=== PATIENT | male | born 1980 | race Two or more races ===

== ENCOUNTER 2024-10-21 18:22 | Emergency (ER) | payer MEDICAID, SELFPAY ==
[2024-10-21 18:23] VITALS: BMI 31.6
[2024-10-21 19:40] VITALS: BP 170/96; PULSE 91; RESP 19; TEMP 36.7; O2SAT 97
--- NOTE | 2024-10-21 19:55 | PD.EDWOUND ---
ED Wound/Laceration-RME/HPI General Chief Complaint: Wound/Laceration Stated Complaint: LAC R) MIDDLE FINGER Time Seen by Provider: 10/21/24 19:52 Arrival date/time: 10/21/24 18:22 44M with no significant PMH presents to ED with L middle finger lac after he accidentally cut himself. Patient is UTD on tetanus. Limitations: no limitations Related Data Allergies Allergy/AdvReac Type Severity Reaction Status Date / Time No Known Allergies Allergy Verified 10/21/24 18:25 Review of Systems Review of Systems Systems Reviewed: All systems reviewed, normal except as documented Constitutional Constitutional: Reports system reviewed and no additional complaints, except as documented, Denies fever(s) and Denies headache(s) ENT Ears, Nose, Mouth, and Throat: Denies disequilibrium and Denies headache(s) Cardiovascular Cardiovascular: Reports system reviewed and no additional complaints, except as documented, Denies chest pain and Denies dyspnea Respiratory Respiratory: Reports system reviewed and no additional complaints, except as documented, Denies cough and Denies dyspnea Gastrointestinal Gastrointestinal: Reports system reviewed and no additional complaints, except as documented, Denies abdominal pain, Denies nausea and Denies vomiting Integumentary/Breasts Skin/Breast: Reports as per HPI and Reports skin pain Neurologic Neurologic: Reports system reviewed and no additional complaints, except as documented, Denies confusion, Denies disequilibrium and Denies headache(s) Psychiatric Psychiatric: Denies confusion Past Medical History Social History SMOKING STATUS: Current every day smoker ED Exam General Limitations: Present no limitations General appearance: Present alert and in no apparent distress Head Head exam: Present atraumatic Eye Eye exam: Present normal appearance, PERRL and EOMI ENT ENT exam: Present normal exam, normal oropharynx and mucous membranes moist Neck Neck exam: Present normal inspection, full ROM and trachea midline Chest Chest inspection: Present normal inspection and symmetric chest wall rise Respiratory Respiratory exam: Present normal lung sounds bilaterally Cardiovascular Cardiovascular exam: Present regular rate, normal rhythm and normal heart sounds Abdominal Exam Abdominal exam: Present soft and normal bowel sounds Extremities Exam Extremities exam: Present full ROM Expanded Upper Extremity Exam Hand exam: Present full ROM (1.5 cm L middle finger dorsal) and laceration Back Exam Back exam: Present normal inspection and full ROM Neurological Exam Neurological exam: Present alert, oriented X3 and CN II-XII intact Psychiatric Psychiatric exam: Present normal affect and normal mood Skin Skin exam: Present warm, dry, intact and normal color Course Quality Measures none Orders Category Date Time Status Wound Care NOW Care 10/21/24 19:54 Active Vital Signs Vital signs: Vital Signs Temperature 98.1 F 10/21/24 19:40 Pulse Rate 91 10/21/24 19:40 Respiratory Rate 19 10/21/24 19:40 Blood Pressure 170/96 H 10/21/24 19:40 Pulse Oximetry (%) 97 10/21/24 19:40 Oxygen Delivery Method Room Air 10/21/24 19:40 O2 at 97% on RA and WNLs Wound / Laceration MDM Narrative MDM Narrative:: 44M with no significant PMH presents to ED with L middle finger lac after he accidentally cut himself. Patient is UTD on tetanus. Physical exam reveals 1.5 cm lac on L dorsal middle finger. ROM intact. Patient is afebrile, calm, and alert. Wound cleaned/irrigated and closed with combo of glue and steri-strips. Patient did not want to wait for stitches. Good skin approximation achieved. Patient data External records reviewed:: None Clinical information provided by:: patient Social determinants that could affect healthcare access:: none Patient has the following chronic illnesses:: none How is presenting disease/condition affected by chronic disease/condition?: no chronic disease Evaluation data The following diagnostics were reviewed and interpreted by me:: other (specify) (none) Lab and/or radiology exams considered but not ordered:: not ordered Interpretation Summary: n/a Medications / Prescriptions Medications or Prescriptions considered but not ordered:: not ordered Medication administrations:: n/a Consultations Consultation(s) initiated? (list below): No Diagnosis Wound Differential Diagnosis: laceration, abrasion and avulsion of skin Most likely diagnosis given after review of the tests above:: laceration Admission Indicated Admission indicated?: not indicated Admission Request Was there a request for admission?: No Disposition Plan Disposition Plan: Discharge Discharge Attestation Discharge Attestation: The patient and all family members were given an opportunity to ask questions and understood the discharge instructions. Discharge instructions specifically effects, indications for sooner follow up or return to the emergency department, and the expected course of current diagnosis. Patient condition: Stable Discharge Plan Plan Patient Disposition: HOME (Self Care) Discharge Disposition comment: STable Prescriptions/Referrals Referrals: No Primary/Family,Physician [Primary Care Provider] - In 1 week Problem List Clinical Impression: Laceration Patient/Caregiver Discharge Instructions Education Materials: ED Laceration, Hand: All Closures Additional Instructions: Please follow-up with PCP within 24-48 hours and return immediately if symptoms worsen. Keep wound as dry as possible. Print Language: Hungarian Stand Alone Forms: Patient Portal Info Letter PA/VIOLA Supervising Physician DANIA/VIOLA Supervising Physician: Dr. Lopez
== END 2024-10-21 20:32 | disposition home or self-care (01) ==
PROVIDERS: Emergency Provider Emergency Medicine
DX: S61.213A Laceration without foreign body of left middle finger without damage to nail, initial encounter (principal); W45.8XXA Other foreign body or object entering through skin, initial encounter
CPT/HCPCS: 12001; 99283

== ENCOUNTER 2024-11-24 12:01 | Emergency (ER) | payer MEDICAID, SELFPAY ==
[2024-11-24 12:02] VITALS: BMI 33.0
[2024-11-24 12:24] VITALS: BP 153/93; PULSE 79; RESP 19; TEMP 36.8; O2SAT 97
--- NOTE | 2024-11-24 12:33 | XR_ITS ---
Examination: Foot, right, 3 views Technique: AP, oblique, lateral views foot, 3 views Date and time of exam: November 24, 2024 1253 hours INDICATIONS: Injury to the foot today, foot pain. FINDINGS: Acute fracture midportion proximal phalanx fourth digit without significant displacement No dislocation IMPRESSION: Acute fracture proximal phalanx fourth digit
[2024-11-24] MEDS: HYDROcodone/APAP 5/325 TABLET 1 TAB PO (13:23)
--- NOTE | 2024-11-24 13:39 | PD.EDANKLE ---
Lower Extremity Injury RME/HPI General Chief Complaint: Ankle/Foot Injury Stated Complaint: R) 4TH TOE PAIN Time Seen by Provider: 11/24/24 12:19 Arrival date/time: 11/24/24 12:01 This is a case of 44-year-old male with no medical history came in in the emergency room due to fourth digit and right foot pain history of present illness started last night when the patient accidentally hit his right foot and toe on the side of the refrigerator causing the toe to hyperextend since then patient noted to have pain and swelling with bruising thus decided to consult here in the emergency room denies any numbness weakness or tingling sensation Limitations: no limitations Related Data Previous Rx's ?Medication ?Instructions ?Recorded ibuprofen 800 mg tablet 800 mg PO Q8H PRN pain #20 tabs 11/24/24 Allergies Allergy/AdvReac Type Severity Reaction Status Date / Time No Known Allergies Allergy Verified 11/24/24 12:04 Review of Systems Review of Systems Systems Reviewed: All systems reviewed, normal except as documented Constitutional Constitutional: Reports system reviewed and no additional complaints, except as documented and Reports as per HPI ENT Ears, Nose, Mouth, and Throat: Denies neck pain Cardiovascular Cardiovascular: Reports system reviewed and no additional complaints, except as documented and Reports as per HPI Respiratory Respiratory: Reports system reviewed and no additional complaints, except as documented and Reports as per HPI Gastrointestinal Gastrointestinal: Reports system reviewed and no additional complaints, except as documented and Reports as per HPI Musculoskeletal Musculoskeletal: Reports system reviewed and no additional complaints, except as documented, Denies arthralgias, Denies atrophy, Denies back pain, Denies deformity, Denies joint swelling, Denies limited range of motion, Denies loss of height, Denies muscle cramps, Denies muscle weakness, Denies myalgias, Denies neck pain, Denies numbness, Denies radiating pain into limb, Denies stiffness, Denies tingling and Reports other (Foot pain and toe pain) Integumentary/Breasts Skin/Breast: Reports other (Ecchymosis) Neurologic Neurologic: Reports system reviewed and no additional complaints, except as documented, Reports as per HPI, Denies numbness and Denies tingling Past Medical History Social History SMOKING STATUS: Current every day smoker ED Exam General Limitations: Present no limitations General appearance: Present alert, in no apparent distress and other (Patient is awake alert oriented not in distress nontoxic looking) Head Head exam: Present atraumatic, normocephalic and normal inspection Eye Eye exam: Present normal appearance, PERRL and EOMI ENT ENT exam: Present normal exam, normal oropharynx and mucous membranes moist Neck Neck exam: Present normal inspection, full ROM and trachea midline Chest Chest inspection: Present normal inspection and symmetric chest wall rise; Absent tenderness Respiratory Respiratory exam: Present normal lung sounds bilaterally; Absent respiratory distress, wheezes, stridor, accessory muscle use or prolonged expiratory phase Cardiovascular Cardiovascular exam: Present regular rate, normal rhythm and normal heart sounds; Absent bradycardia, tachycardia, irregular rhythm, systolic murmur or diastolic murmur Abdominal Exam Abdominal exam: Present soft and normal bowel sounds Extremities Exam Extremities exam: Present normal inspection and full ROM Expanded Lower Extremity Exam Foot/toe exam: Present tenderness, swelling, ecchymosis and other (Noted a ecchymosis on the distal dorsal foot with mild swelling and tenderness patient also noted to have ecchymosis and tenderness with swelling on the fourth digit right foot ROM still intact but with pain pulses were full and equal capillary refill less than 2 seconds); Absent abrasion, laceration, deformity, crepitus, dislocation, erythema, puncture wound, foreign body, calcaneal tenderness, tenderness at base of 5th metatarsal, nail avulsion or subungual hematoma Back Exam Back exam: Present normal inspection and full ROM Neurological Exam Neurological exam: Present alert, oriented X3, CN II-XII intact, normal gait and reflexes normal; Absent motor sensory deficit Psychiatric Psychiatric exam: Present normal affect and normal mood Skin Skin exam: Present warm, dry, intact, normal color and other (Ecchymosis right dorsal foot and fourth digit right foot) Course Quality Measures none Orders Category Date Time Status Splint / Immobilizer STAT Care 11/24/24 13:12 Active XR foot comp RT min 3V Stat Exams 11/24/24 12:33 Completed HYDROcodone*/APAP 5/325 [Edcouch 5/325] Med 11/24/24 13:12 Discontinued 1 tab PO X1 ONE Vital Signs Vital signs: Vital Signs Temperature 98.3 F 11/24/24 12:24 Pulse Rate 79 11/24/24 12:24 Respiratory Rate 19 11/24/24 12:24 Blood Pressure 153/93 H 11/24/24 12:24 Pulse Oximetry (%) 97 07/21/25 12:24 Oxygen Delivery Method Room Air 11/24/24 12:24 Patient is afebrile not tachycardic not tachypneic BP stable not hypoxic oxygen saturation is 97% in room air Extremity Injury, Lower MDM Narrative MDM Narrative:: This is a case of 44-year-old male with no medical history came in in the emergency room due to fourth digit and right foot pain history of present illness started last night when the patient accidentally hit his right foot and toe on the side of the refrigerator causing the toe to hyperextend since then patient noted to have pain and swelling with bruising thus decided to consult here in the emergency room denies any numbness weakness or tingling sensation physical examination patient is awake alert oriented not in distress nontoxic looking vital signs stable noted a ecchymosis on the distal dorsal foot with mild swelling and tenderness patient also noted to have ecchymosis and tenderness with swelling on the fourth digit right foot ROM still intact but with pain pulses were full and equal capillary refill less than 2 seconds x-ray of the right foot showed a proximal phalanx fracture of the fourth digit right foot Ortho shoe was applied to the patient's right foot patient tolerated well neurovascular intact RICE treatment will continue by the patient at home he was advised to see an orthopedic surgeon for further evaluation and treatment of the proximal fracture lungs of the right foot worsening symptoms patient notified to return in the emergency room immediately or call 911 patient was given Edcouch here in the emergency room patient pain was improved and resolved patient was prescribed with ibuprofen as needed for pain Patient was discharged with comfortable condition walking with stable gait. Patient verbalized no further complains explained diagnosis and answered patient question. Patient is comfortable with the proposed management plan including the need to follow up with his/her primary care physician and any specialist if applicable Discussed patient for any urgent condition or worsening sx, He/She needed to go to emergency room immediately or call 911. Patient acknowledge the responsibility to follow up as instructed and to monitor her/his symptoms. For any persistence of the symptoms for more than 3-5 days return precaution advised. Discussed the result of the test and was given printed discharge instruction Patient data External records reviewed:: [facility] previous records Clinical information provided by:: patient Social determinants that could affect healthcare access:: none Patient has the following chronic illnesses:: None How is presenting disease/condition affected by chronic disease/condition?: no chronic disease Evaluation data The following diagnostics were reviewed and interpreted by me:: radiology exam(s) Lab and/or radiology exams considered but not ordered:: Reviewed Interpretation Summary: Reviewed Medications / Prescriptions Medications or Prescriptions considered but not ordered:: Given Medication administrations:: Medication Administration History Discontinued Medications Hydrocodone Bitart/Acetaminophen (Hydrocodone/Apap 5/325 Tablet) 1 tab PO X1 ONE Stop: 11/24/24 13:13 Last Admin: 11/24/24 13:23 Dose: 1 tab Documented By: OA Given Consultations Consultation(s) initiated? (list below): No Diagnosis Extremity Injury, Lower Differential Diagnosis: other (Foot fracture toe fracture sprain) Most likely diagnosis given after review of the tests above:: Foot contusion toe fracture Admission Indicated Admission indicated?: not indicated Explain why admission is indicated or not indicated:: Not indicated Admission Request Was there a request for admission?: No Admission Attestation Admission request attestation: Not indicated Disposition Plan Disposition Plan: Discharge Discharge Attestation Discharge Attestation: The patient and all family members were given an opportunity to ask questions and understood the discharge instructions. Discharge instructions specifically effects, indications for sooner follow up or return to the emergency department, and the expected course of current diagnosis. Patient condition: Stable Discharge Plan Plan Patient Disposition: HOME (Self Care) Patient condition on transfer: Stable Prescriptions/Referrals Prescriptions/Med Rec: New ibuprofen 800 mg tablet 800 mg PO Q8H PRN (Reason: pain) Qty: 20 0RF Referrals: Speedy Ellis MD [Physician] - 11/25/24 (For further evaluation and treatment of proximal phalanx fracture of fourth digit foot) Rajat Gallagher PA-C [Primary Care Provider] - In 1 week Problem List Clinical Impression: Closed fracture of proximal phalanx of toe, Contusion of foot Patient/Caregiver Discharge Instructions Education Materials: ED Foot Contusion, ED Fracture, Toe, Closed, ED RICE Additional Instructions: Follow-up with your primary care physician in 2 days for reevaluation it is important to see an orthopedic surgeon for further evaluation and treatment of proximal phalanx fracture of the fourth digit right foot worsening symptoms or any emergent concerns such as numbness weakness tingling sensation call 911 or go to the nearest emergency room ice pack every 2 hours for 20 minutes for 24 hours then alternate with warm compress elevate to decrease swelling use of Ortho shoes for ambulation is advised Print Language: Korean Stand Alone Forms: Mihaela Award Info., Patient Portal Info Letter PA/BRANCH [employer]PERATIONS MANAGER Supervising Physician PA/BRANCH [employer]PERATIONS MANAGER Supervising Physician: DR blanton
== END 2024-11-24 14:24 | disposition home or self-care (01) ==
PROVIDERS: Emergency Provider Emergency Medicine; PCP Physician Assistant
DX: S92.514A Nondisplaced fracture of proximal phalanx of right lesser toe(s), initial encounter for closed fracture (principal); W22.8XXA Striking against or struck by other objects, initial encounter
CPT/HCPCS: 73630; 99283; A9270